=== PATIENT | female | born 1990 | race Caucasian/White ===

== ENCOUNTER 2020-05-02 16:39 | Emergency (ER) | payer OTHER ==
[~2020-05-02] VITALS: Ht 147.3 cm; Wt 77.1 kg
[~2020-05-02 16:39] MED LIST: ACET325 PO; AMOCLA875 PO; AMOX500 PO; CLIN300 PO; CRUTCH4 XX; CYCL10 PO; FLUC200 PO; HYDACE5 PO; IBUP400; IBUP600 PO; MELA3; METR500 PO; Mirena1 EACH; NAPR220 PO; NAPR375 PO; NAPR500 PO; ONDA4 PO; ONDA8 PO; PENVK500 PO; PRED10 PO; RXHYDACE PO; SERT25; SERT25 PO; SILSUL1TC TOP; TRAM50 PO; Zofran Odt4 MG SL
[2020-05-02 17:39] LABS: BASOPHILS ABSOLUTE AUTO 0.04 K/mm3 (0.00-0.23); BASOPHILS PERCENT AUTO 1 % (0-2); EOSINOPHILS ABSOLUTE AUTO 0.15 K/mm3 (0.00-0.68); EOSINOPHILS PERCENT AUTO 2 % (0-6); Hematocrit 42.9 % (33.0-51.0); Hemoglobin 13.6 g/dL (11.5-16.0); IMMATURE GRAN ABSOLUTE AUTO 0.16 K/mm3 (0.00-0.10); IMMATURE GRAN PERCENT AUTO 2 % (0-1); LYMPHOCYTES ABSOLUTE AUTO 2.47 K/mm3 (0.84-5.20); LYMPHOCYTES PERCENT AUTO 29 % (21-46); MONOCYTES ABSOLUTE AUTO 0.79 K/mm3 (0.16-1.47); MONOCYTES PERCENT AUTO 9 % (4-13); Mean Corpuscular HGB 26.5 pg (26.0-34.0); Mean Corpuscular HGB Conc 31.7 g/dL (31.5-36.5); Mean Corpuscular Volume 84 fL (80-100); NEUTROPHILS ABSOLUTE AUTO 5.07 K/mm3 (1.96-9.15); NEUTROPHILS PERCENT AUTO 58 % (41-73); Platelet Count 239 K/mm3 (150-400); RDW Coefficient Variation 14.4 % (11.7-14.2); RDW Standard Deviation 44.1 fL (35.1-46.3); Red Blood Cell Count 5.14 M/mm3 (3.80-5.20); White Blood Cell Count 8.68 K/mm3 (4.00-11.30)
[2020-05-02 17:59] LABS: Alanine Aminotransfer (ALT/SGP 28 U/L (12-78); Alk Phos 91 U/L (50-136); Anion Gap 5 mmol/L (6-16); Aspartate Aminotrans (AST/SGOT 14 U/L (12-37); Bilirubin, Total 0.3 mg/dL (0.1-1.0); Blood Urea Nitrogen 13 mg/dL (8-24); Bun/Creatinine Ratio 16.9 (12.0-20.0); CO2, Blood 29 mmol/L (21-32); Calcium, Blood 9.4 mg/dL (8.5-10.1); Chloride, Blood 111 mmol/L (98-108); Creatinine, Blood 0.77 mg/dL (0.40-1.00); Glomerular Filtration Rate >60 (60-); Glucose, Blood 103 mg/dL (70-99); Potassium, Blood 3.9 mmol/L (3.5-5.5); Sodium, Blood 145 mmol/L (136-145)
[2020-05-02 18:12] LABS: Source, Urine Clean Catch
[2020-05-02 18:15] LABS: Appearance, Urine Clear (Clear); Bilirubin, Urine Neg (Neg); Blood, Urine 3+ (Neg); Color, Urine Yellow (P-Yellow); Glucose Qualitative, Urine Neg (Neg); Ketones, Urine Neg (Neg); Leukocyte Esterase, Urine Neg (Neg); Nitrite, Urine Pos (Neg); Protein, Urine Neg (Neg); Specific Gravity, Urine 1.025 (1.003-1.022); Urobilinogen, Urine NORM (Normal)
[2020-05-02 18:35] LABS: Bacteria Mod /hpf; Mucus Light (0-Heavy); Squamous Epithelial Cells Few /hpf (Few); White Blood Cells, Urine 0-2 /hpf (0-5)
[2020-05-02] MEDS ORDERED: CEPH500 PO (18:49)
[2020-05-02] MEDS ORDERED: Pyridium100 MG PO (18:49)
== END 2020-05-02 19:16 | disposition home or self-care (01) ==
LOC: ER 16:39
PROVIDERS: Physician Assistant
DX: N39.0 Urinary tract infection, site not specified (principal); Z87.891 Personal history of nicotine dependence
CPT/HCPCS: 36415; 76770; 80053; 81001; 81025; 83690; 85025; 87077; 87086; 87186; 99284-25; A9270-GY

== ENCOUNTER 2020-05-18 06:15 | Emergency (ER) | payer OTHER ==
[~2020-05-18] VITALS: Ht 147.3 cm; Wt 77.1 kg
[~2020-05-18 06:15] MED LIST changes: +CEPH500 PO; +Pyridium100 MG PO
[2020-05-18 07:07] LABS: BASOPHILS ABSOLUTE AUTO 0.06 K/mm3 (0.00-0.23); BASOPHILS PERCENT AUTO 1 % (0-2); EOSINOPHILS ABSOLUTE AUTO 0.21 K/mm3 (0.00-0.68); EOSINOPHILS PERCENT AUTO 2 % (0-6); Hematocrit 38.8 % (33.0-51.0); Hemoglobin 12.2 g/dL (11.5-16.0); IMMATURE GRAN ABSOLUTE AUTO 0.11 K/mm3 (0.00-0.10); IMMATURE GRAN PERCENT AUTO 1 % (0-1); LYMPHOCYTES ABSOLUTE AUTO 2.74 K/mm3 (0.84-5.20); LYMPHOCYTES PERCENT AUTO 30 % (21-46); MONOCYTES ABSOLUTE AUTO 0.79 K/mm3 (0.16-1.47); MONOCYTES PERCENT AUTO 9 % (4-13); Mean Corpuscular HGB 26.7 pg (26.0-34.0); Mean Corpuscular HGB Conc 31.4 g/dL (31.5-36.5); Mean Corpuscular Volume 85 fL (80-100); Mean Platelet Volume 9.2 fL (9.1-12.4); NEUTROPHILS ABSOLUTE AUTO 5.19 K/mm3 (1.96-9.15); NEUTROPHILS PERCENT AUTO 57 % (41-73); Platelet Count 242 K/mm3 (150-400); RDW Coefficient Variation 14.8 % (11.7-14.2); RDW Standard Deviation 45.2 fL (35.1-46.3); Red Blood Cell Count 4.57 M/mm3 (3.80-5.20)
[2020-05-18 07:24] LABS: Alanine Aminotransfer (ALT/SGP 22 U/L (12-78); Albumin, Blood 3.7 g/dL (3.4-5.0); Alk Phos 94 U/L (50-136); Anion Gap 5 mmol/L (6-16); Aspartate Aminotrans (AST/SGOT 17 U/L (12-37); Bilirubin, Total 0.4 mg/dL (0.1-1.0); Blood Urea Nitrogen 9 mg/dL (8-24); Bun/Creatinine Ratio 14.5 (12.0-20.0); CO2, Blood 27 mmol/L (21-32); Chloride, Blood 109 mmol/L (98-108); Creatinine, Blood 0.62 mg/dL (0.40-1.00); Globulin, Blood 3.7 g/dL (2.2-4.0); Glomerular Filtration Rate >60 (60-); Glucose, Blood 108 mg/dL (70-99); Sodium, Blood 141 mmol/L (136-145); Total Protein, Blood 7.4 g/dL (6.4-8.2)
[2020-05-18 07:25] LABS: Source, Urine Clean Catch
[2020-05-18 07:28] LABS: Blood, Urine 5+ (Neg); Glucose Qualitative, Urine Neg (Neg); Ketones, Urine Neg (Neg); Leukocyte Esterase, Urine Neg (Neg); Nitrite, Urine Pos (Neg); Protein, Urine 3+ (Neg); Urobilinogen, Urine 2+ (Normal)
[2020-05-18 07:35] LABS: Bilirubin, Urine 3+ (Neg); Color, Urine Red (P-Yellow)
[2020-05-18 07:37] LABS: Bacteria Mod /hpf; Red Blood Cells, Urine TNTC /hpf (0-2); Squamous Epithelial Cells Few /hpf (Few)
[2020-05-18 07:38] LABS: Amorphous Mod (0-Heavy); Appearance, Urine Cloudy (Clear)
[2020-05-18] MEDS ORDERED: CIPR500 PO (08:25)
== END 2020-05-18 08:42 | disposition home or self-care (01) ==
LOC: ER 06:15
PROVIDERS: Emergency Medicine
DX: N10 Acute pyelonephritis (principal); S01.81XA Laceration without foreign body of other part of head, initial encounter; Z87.891 Personal history of nicotine dependence; X58.XXXA Exposure to other specified factors, initial encounter
CPT/HCPCS: 80053; 81001; 81025; 85025; 87086; 96365; 99284-25; J0696

== ENCOUNTER 2021-12-04 17:29 | Emergency (ER) | payer OTHER ==
[~2021-12-04] VITALS: Ht 165.1 cm; Wt 70.3 kg
[~2021-12-04 17:29] MED LIST changes: +CIPR500 PO
== END 2021-12-04 20:57 | disposition home or self-care (01) ==
LOC: ER 17:29
DX: O26.892 Other specified pregnancy related conditions, second trimester (principal); R10.2 Pelvic and perineal pain; O46.8X2 Other antepartum hemorrhage, second trimester; O34.219 Maternal care for unspecified type scar from previous cesarean delivery; Z3A.16 16 weeks gestation of pregnancy; Z87.891 Personal history of nicotine dependence
CPT/HCPCS: 76815; 76817; 81000

== ENCOUNTER 2023-01-21 09:55 | Emergency (ER) | payer OTHER ==
[~2023-01-21] VITALS: Ht 147.3 cm; Wt 79.8 kg
[2023-01-21] MEDS ORDERED: PRENATAL TABLE1 EAC2 PO (10:47)
[2023-01-21 10:53] LABS: BASOPHILS ABSOLUTE AUTO 0.02 K/mm3 (0.00-0.23); BASOPHILS PERCENT AUTO 0 % (0-2); EOSINOPHILS ABSOLUTE AUTO 0.13 K/mm3 (0.00-0.68); EOSINOPHILS PERCENT AUTO 1 % (0-6); Hematocrit 37.8 % (33.0-51.0); Hemoglobin 12.3 g/dL (11.5-16.0); IMMATURE GRAN ABSOLUTE AUTO 0.13 K/mm3 (0.00-0.10); IMMATURE GRAN PERCENT AUTO 1 % (0-1); LYMPHOCYTES ABSOLUTE AUTO 1.75 K/mm3 (0.84-5.20); LYMPHOCYTES PERCENT AUTO 19 % (21-46); MONOCYTES PERCENT AUTO 8 % (4-13); Mean Corpuscular HGB 26.2 pg (26.0-34.0); Mean Corpuscular HGB Conc 32.5 g/dL (31.5-36.5); Mean Corpuscular Volume 81 fL (80-100); Mean Platelet Volume 9.2 fL (9.1-12.4); NEUTROPHILS ABSOLUTE AUTO 6.64 K/mm3 (1.96-9.15); NEUTROPHILS PERCENT AUTO 71 % (41-73); Platelet Count 211 K/mm3 (150-400); RDW Coefficient Variation 16.2 % (11.7-14.2); RDW Standard Deviation 47.4 fL (35.1-46.3); Red Blood Cell Count 4.69 M/mm3 (3.80-5.20); White Blood Cell Count 9.37 K/mm3 (4.00-11.30)
[2023-01-21 11:27] LABS: Bun/Creatinine Ratio 12.5 (12.0-20.0); Calcium, Blood 8.7 mg/dL (8.5-10.1); Creatinine, Blood 0.48 mg/dL (0.40-1.00); Potassium, Blood 3.6 mmol/L (3.5-5.5)
[2023-01-21 11:57] LABS: Source, Urine Clean Catch
[2023-01-21 12:18] LABS: Appearance, Urine Hazy (Clear); Bilirubin, Urine Neg (Neg); Blood, Urine 5+ (Neg); Color, Urine Red (P-Yellow); Glucose Qualitative, Urine Neg (Neg); Ketones, Urine 1+ (Neg); Leukocyte Esterase, Urine 1+ (Neg); Nitrite, Urine Neg (Neg); Protein, Urine 3+ (Neg); Urobilinogen, Urine NORM (Normal)
[2023-01-21 12:38] LABS: Bacteria Mod /hpf; Mucus Mod (0-Heavy); Red Blood Cells, Urine 50-100 /hpf (0-2); Squamous Epithelial Cells Few /hpf (Few)
[2023-01-21 13:27] VITALS: BP 107/64
== END 2023-01-21 13:29 | disposition home or self-care (01) ==
LOC: ER 09:55
PROVIDERS: Physician Assistant
DX: O20.8 Other hemorrhage in early pregnancy (principal); Z87.891 Personal history of nicotine dependence; Z3A.09 9 weeks gestation of pregnancy
CPT/HCPCS: 76801; 76817; 80048; 81001; 84702; 85025; 86900; 86901; 87086; 96360; 99284-25; J7030

== ENCOUNTER 2023-03-12 09:50 | Emergency (ER) | payer OTHER ==
[~2023-03-12] VITALS: Ht 147.3 cm; Wt 77.1 kg
[~2023-03-12 09:50] MED LIST changes: +PRENATAL TABLE1 EAC2 PO
[2023-03-12 10:48] LABS: Source, Urine Clean Catch
[2023-03-12 11:00] VITALS: BP 133/69
[2023-03-12 11:06] LABS: Appearance, Urine Clear (Clear); Bilirubin, Urine Neg (Neg); Blood, Urine 4+ (Neg); Color, Urine Yellow (P-Yellow); Glucose Qualitative, Urine Neg (Neg); Ketones, Urine Neg (Neg); Leukocyte Esterase, Urine Neg (Neg); Nitrite, Urine Neg (Neg); Protein, Urine Neg (Neg); Specific Gravity, Urine 1.025 (1.003-1.022); Urobilinogen, Urine NORM (Normal)
[2023-03-12 11:29] LABS: Mucus Mod (0-Heavy); Squamous Epithelial Cells Few /hpf (Few); Transitional Epithelial Cells Few /hpf (0-Rare)
[2023-03-12 11:30] LABS: Amorphous Light (0-Heavy); Bacteria Few /hpf; White Blood Cells, Urine 0-2 /hpf (0-5)
== END 2023-03-12 12:00 | disposition home or self-care (01) ==
LOC: ER 09:50
PROVIDERS: Physician Assistant
DX: O99.891 Other specified diseases and conditions complicating pregnancy (principal); R10.31 Right lower quadrant pain; Z3A.17 17 weeks gestation of pregnancy; Z87.891 Personal history of nicotine dependence; Z79.899 Other long term (current) drug therapy
CPT/HCPCS: 81001; 99284-25

== ENCOUNTER 2023-04-10 14:46 | Inpatient (IN) | payer OTHER ==
[~2023-04-10] VITALS: Ht 147.3 cm; Wt 83.6 kg
[2023-04-10 15:04] VITALS: BP 113/53
[2023-04-10 15:30] LABS: Source, Urine Voided
[2023-04-10 15:48] LABS: Appearance, Urine Clear (Clear); Bilirubin, Urine Neg (Neg); Blood, Urine 1+ (Neg); Color, Urine Yellow (P-Yellow); Glucose Qualitative, Urine 3+ (Neg); Ketones, Urine Neg (Neg); Leukocyte Esterase, Urine 2+ (Neg); Nitrite, Urine Neg (Neg); Protein, Urine 1+ (Neg); Specific Gravity, Urine 1.025 (1.003-1.022); Urobilinogen, Urine NORM (Normal)
[2023-04-10 16:10] LABS: Bacteria Many /hpf; Hyaline Casts 0-2 /lpf (0-2); White Blood Cells, Urine 25-50 /hpf (0-5)
[2023-04-10 16:11] LABS: Squamous Epithelial Cells Mod /hpf (Few); Transitional Epithelial Cells Rare /hpf (0-Rare)
[2023-04-10 20:35] LABS: BASOPHILS ABSOLUTE AUTO 0.08 K/mm3 (0.00-0.23); BASOPHILS PERCENT AUTO 1 % (0-2); EOSINOPHILS ABSOLUTE AUTO 0.13 K/mm3 (0.00-0.68); EOSINOPHILS PERCENT AUTO 1 % (0-6); Hemoglobin 11.1 g/dL (11.5-16.0); IMMATURE GRAN ABSOLUTE AUTO 0.64 K/mm3 (0.00-0.10); IMMATURE GRAN PERCENT AUTO 4 % (0-1); LYMPHOCYTES ABSOLUTE AUTO 1.93 K/mm3 (0.84-5.20); LYMPHOCYTES PERCENT AUTO 13 % (21-46); MONOCYTES ABSOLUTE AUTO 1.17 K/mm3 (0.16-1.47); MONOCYTES PERCENT AUTO 8 % (4-13); Mean Corpuscular HGB 27.2 pg (26.0-34.0); Mean Corpuscular HGB Conc 32.6 g/dL (31.5-36.5); Mean Corpuscular Volume 83 fL (80-100); NEUTROPHILS ABSOLUTE AUTO 10.72 K/mm3 (1.96-9.15); NEUTROPHILS PERCENT AUTO 73 % (41-73); Platelet Count 193 K/mm3 (150-400); RDW Coefficient Variation 16.3 % (11.7-14.2); RDW Standard Deviation 48.9 fL (35.1-46.3); Red Blood Cell Count 4.08 M/mm3 (3.80-5.20); White Blood Cell Count 14.67 K/mm3 (4.00-11.30)
[2023-04-10 21:15] LABS: Albumin/Globulin Ratio 0.8 (0.8-1.8); Bilirubin, Total 0.3 mg/dL (0.1-1.0); Bun/Creatinine Ratio 14.1 (12.0-20.0); Calcium, Blood 8.9 mg/dL (8.5-10.1); Creatinine, Blood 0.5 mg/dL (0.40-1.00); Potassium, Blood 3.7 mmol/L (3.5-5.5)
[2023-04-11] VITALS (8 sets, daily range): BP systolic 108–126; BP diastolic 55–62
--- NOTE | 2023-04-11 08:01 | NUR ---
FHT 140-150s FEELS BABY MOVING
--- NOTE | 2023-04-11 10:33 | NUR ---
PATIENT CONTINUES TO HAVE CRAMPING, STATES NOT ANY WORSE AT THIS TIME STARTED AT 0815 THIS MORNING
--- NOTE | 2023-04-11 10:58 | NUR ---
still cramping, heating pad offered
--- NOTE | 2023-04-11 17:56 | NUR ---
DENIES LOSING FLUID BUT INCREASE IN DISCHARGE, STATES SHARP SHOOTING PAIN IN VAGINA BUT DENIED CRAMPING AT THIS TIME
--- NOTE | 2023-04-11 19:53 | NUR ---
1940- FHR 150S ON HANDHELD DOPPLER.
[2023-04-12] VITALS (9 sets, daily range): BP systolic 94–135; BP diastolic 50–62
--- NOTE | 2023-04-12 03:25 | NUR ---
0150- FHR 150S WITH HANDHELD DOPPLER.
--- NOTE | 2023-04-12 08:04 | NUR ---
STATES MORE CRAMPING INCREASE PRESSURE, INCREASE DISCHARGE, FHT WITH DOPPLER 120s
--- NOTE | 2023-04-12 10:43 | NUR ---
patient took quick nap states warm temp 98.7, states has headache, wants tylenol
--- NOTE | 2023-04-12 11:10 | NUR ---
PATIENTSTATES SHE FEELS LIKE SHE IS GETTING SICK CHEEKS ARE FLUSH UP TO SHOWER LINEN CHANGED VITALS WNL
[2023-04-12 12:27] LABS: Hematocrit 31.4 % (33.0-51.0); Hemoglobin 10.1 g/dL (11.5-16.0); Mean Corpuscular HGB 27.4 pg (26.0-34.0); Mean Corpuscular HGB Conc 32.2 g/dL (31.5-36.5); Mean Corpuscular Volume 85 fL (80-100); Mean Platelet Volume 9.2 fL (9.1-12.4); Platelet Count 201 K/mm3 (150-400); RDW Coefficient Variation 16.8 % (11.7-14.2); RDW Standard Deviation 51.2 fL (35.1-46.3); Red Blood Cell Count 3.68 M/mm3 (3.80-5.20); White Blood Cell Count 20.35 K/mm3 (4.00-11.30)
[2023-04-12 12:53] LABS: BAND PERCENT MAN 2 % (0-8); BASOPHILS PERCENT MAN 0 % (0-2); EOSINOPHILS PERCENT MAN 0 % (0-6); LYMPHOCYTES ABSOLUTE MAN 1.42 K/mm3 (0.84-5.20); LYMPHOCYTES PERCENT MAN 7 % (21-46); METAMYELOCYTE PERCENT MAN 2 % (0-0); MONOCYTES PERCENT MAN 2 % (4-13); NEUTROPHILS ABSOLUTE MAN 18.11 K/mm3 (1.96-9.15); SEG NEUTROPHILS PERCENT MAN 87 % (41-73); TOTAL CELLS COUNTED 100
--- NOTE | 2023-04-12 13:30 | NUR ---
PATIENT STATES STILL CRAMPING WBC INCREASE IN LAB WORK FHT AT 140, WILL UPDATE DR NEWMAN
--- NOTE | 2023-04-12 13:40 | NUR ---
DR NEWMAN UPDATED SHE IS CONTACTING THE ETHICS COMMITEE TO START INDUCTION BECAUSE WBC ARE INCREASING AND PATIENT FEELS SHE IS GETTING SICKER, PATIET IS AWARE THAT IF THE BABY IS BORN ALIVE THAT NO HEROIC MEASURES WILL BE PERFORMED AND THE BABY WILL NOT MAKE IT, PATIENT HAS COME TO TERMS WITH THAT AND WANTS TO PROCEED AT THIS TIME,
--- NOTE | 2023-04-12 14:36 | NUR ---
CALL OUT TO DR NEWMAN TO CONFIRM STARTING PITOCIN, SHE IS IN CONTACT WITH ETHICS COMMITEE, SPOUSE IS AT BEDSIDE BOTH HAVE CONFIRMED AND APPROVED OF PLAN TO DELIVERY BABY, BOTH ARE AWARE BABY WILL BE PLACED ON HER CHEST AFTER AND NO COMFORT CARE ONLY WILL BE GIVEN IF BABY IS BORN ALIVE
--- NOTE | 2023-04-12 14:59 | NUR ---
Ethics consultation requested. Provider reports that the birthing patient is displaying clinical signs of infection and efforts to stave off the onset of chorioamnionitis are unfortunately proving non-efficacious. Proceeding with indunction measures in this situation would be ethically and morally appropriate. Our clinicians are supported to pursue operations, treatments, and medications within the standard of care that have as their direct purpose the cure of a proportionately serious pathological condition, even if this indirectly results in the termination of the . Tragically, the child has not reached the age of viability, so upon delivery; in accordance with the wishes expressed by the parents, resuscitative efforts will be withheld. Praying for healing, strength and courage for the medical team, and the family in their time of pain, grief and loss. Thank you for this consult. Red Dorantes, PhD, ARIANA
--- NOTE | 2023-04-12 15:10 | NUR ---
SPOKE WITH [facility] [employer] COMMITTEE HE CONFIRMED WE ARE CAN START INDUCTION PROCESS, FAMILY IS STILL CONFIRMING THEY WANT TO PROCEED
--- NOTE | 2023-04-12 16:04 | NUR ---
Spiritual care visit conducted. Patient with SO Freddy present talk with me about their history, their spiritual beliefs and guilt they are working through. I listen empathically and hear of the loss and emotional pain of their past. I provide theological and medical insights that appear to lift the weight they are feeling. I maintain a calming presence and highlight their courage. Both patient and Freddy showed signs of greater peace. Their county commissioner arrives and takes over the conversation and I allow them to talk.
--- NOTE | 2023-04-12 16:29 | NUR ---
patient was with spiritual care and not ready for induction yet, patient is now ready to start pitocin
--- NOTE | 2023-04-12 17:22 | NUR ---
baby to go to [facility] home after discharge
[2023-04-13] VITALS (12 sets, daily range): BP systolic 99–137; BP diastolic 51–74
[2023-04-13 06:42] LABS: Hematocrit 28.6 % (33.0-51.0); Hemoglobin 9.2 g/dL (11.5-16.0); Mean Corpuscular HGB 27.5 pg (26.0-34.0); Mean Corpuscular HGB Conc 32.2 g/dL (31.5-36.5); Mean Corpuscular Volume 85 fL (80-100); Mean Platelet Volume 9.5 fL (9.1-12.4); NRBC ABSOLUTE 0.03 K/mm3 (0.00-0.02); NRBC Auto 0.2 /100 WBC (0.0-0.2); Platelet Count 192 K/mm3 (150-400); RDW Coefficient Variation 16.9 % (11.7-14.2); RDW Standard Deviation 51.9 fL (35.1-46.3); Red Blood Cell Count 3.35 M/mm3 (3.80-5.20); White Blood Cell Count 19.76 K/mm3 (4.00-11.30)
[2023-04-13 07:02] LABS: BAND PERCENT MAN 3 % (0-8); BASOPHILS PERCENT MAN 0 % (0-2); EOSINOPHILS PERCENT MAN 0 % (0-6); LYMPHOCYTES ABSOLUTE MAN 1.18 K/mm3 (0.84-5.20); LYMPHOCYTES PERCENT MAN 6 % (21-46); METAMYELOCYTE ABSOLUTE MAN 0.79 K/mm3 (0.00-0.00); METAMYELOCYTE PERCENT MAN 4 % (0-0); MONOCYTES ABSOLUTE MAN 0.59 K/mm3 (0.16-1.47); MONOCYTES PERCENT MAN 3 % (4-13); NEUTROPHILS ABSOLUTE MAN 17.19 K/mm3 (1.96-9.15); SEG NEUTROPHILS PERCENT MAN 84 % (41-73); TOTAL CELLS COUNTED 100
--- NOTE | 2023-04-13 09:03 | NUR ---
THIS RN CONTACTED DR NEWMAN REGARDING PT LABS. LABS REVIEWED. PT STILL OK TO DISCHARGE AFTER 6 HOURS OF DELIVERY.
== END 2023-04-13 11:40 | disposition home or self-care (01) | DRG 805 ==
LOC: OBS 14:46 → BC 14:46 → OBS 18:55 → BC 18:56
PROVIDERS: ADMIT Obstetrics & Gynecology
PROC: 10E0XZZ Delivery of Products of Conception, External Approach (ICD-10-PCS; principal; 2023-04-13)
DX: O42.912 Preterm premature rupture of membranes, unspecified as to length of time between rupture and onset of labor, second trimester (principal); O41.1220 Chorioamnionitis, second trimester, not applicable or unspecified; Z37.1 Single stillbirth; O42.012 Preterm premature rupture of membranes, onset of labor within 24 hours of rupture, second trimester; O32.1XX0 Maternal care for breech presentation, not applicable or unspecified; O69.2XX0 Labor and delivery complicated by other cord entanglement, with compression, not applicable or unspecified; Z3A.21 21 weeks gestation of pregnancy; Z87.891 Personal history of nicotine dependence; O34.219 Maternal care for unspecified type scar from previous cesarean delivery
CPT/HCPCS: 36415; 76815; 80053; 81001; 81003; 85025; 86850; 86900; 86901; 86923; 87086; 87210; 96372; 99213; A9270; J0295; J0702; J1885; J2590; J3010; J7120

== ENCOUNTER → 2024-11-06 | Outpatient (CLI) | payer OTHER ==
[2024-11-09 02:18] LABS: APTIMA MEDIA TYPE Urine; C. TRACHOMATIS BY TMA Negative (Negative); N. GONORRHOEAE BY TMA Negative (Negative); SPECIMEN SOURCE Urine
== END | disposition home or self-care (01) ==
LOC: LAB 18:25 → LAB SHORT 18:25
PROVIDERS: Obstetrics & Gynecology
DX: Z34.81 Encounter for supervision of other normal pregnancy, first trimester (principal)
CPT/HCPCS: 87491; 87591

== ENCOUNTER 2025-06-14 05:30 | Inpatient (IN) | payer OTHER ==
[2025-06-14] VITALS (18 sets, daily range): BP systolic 110–131; BP diastolic 56–78
[~2025-06-14] VITALS: Ht 147.3 cm; Wt 89.5 kg
[2025-06-14] MEDS ORDERED: Oxytocin 10 Unit / ML Vial IM PRN (07:55)
[2025-06-14] MEDS ORDERED: Methylergonovine Maleate 0.2MG / ML 1ML Amp IM PRN (07:55)
[2025-06-14] MEDS ORDERED: CeFAZolin Sodium 2,000 MG in NS 100 ML IV SCH (07:55)
[2025-06-14] MEDS ORDERED: Ondansetron HCl 2 MG / ML 2ML Vial IV PRN ×4 (07:55→11:00)
[2025-06-14] MEDS ORDERED: Tranexamic Acid 100 ML IV SCH (07:55)
[2025-06-14] MEDS ORDERED: Carboprost Tromethamine 250 MCG/ML 1ML Amp IM PRN (07:55)
[2025-06-14] MEDS ORDERED: OXYTOCIN/RINGER'S LACTATE 500 ML IV PRN (07:55)
[2025-06-14 08:03] LABS: BASOPHILS ABSOLUTE AUTO 0.08 K/mm3 (0.00-0.23); BASOPHILS PERCENT AUTO 1 % (0-2); EOSINOPHILS ABSOLUTE AUTO 0.10 K/mm3 (0.00-0.68); EOSINOPHILS PERCENT AUTO 1 % (0-6); Hematocrit 33.5 % (33.0-51.0); Hemoglobin 10.4 g/dL (11.5-16.0); IMMATURE GRAN ABSOLUTE AUTO 0.46 K/mm3 (0.00-0.10); IMMATURE GRAN PERCENT AUTO 4 % (0-1); LYMPHOCYTES ABSOLUTE AUTO 2.10 K/mm3 (0.84-5.20); LYMPHOCYTES PERCENT AUTO 17 % (21-46); MONOCYTES ABSOLUTE AUTO 0.97 K/mm3 (0.16-1.47); MONOCYTES PERCENT AUTO 8 % (4-13); Mean Corpuscular HGB Conc 31.0 g/dL (31.5-36.5); Mean Corpuscular Volume 80 fL (80-100); NEUTROPHILS ABSOLUTE AUTO 8.45 K/mm3 (1.96-9.15); NEUTROPHILS PERCENT AUTO 69 % (41-73); NRBC ABSOLUTE 0.00 K/mm3 (0.00-0.02); NRBC Auto 0.0 /100 WBC (0.0-0.2); Platelet Count 184 K/mm3 (150-400); RDW Coefficient Variation 17.2 % (11.7-14.2); RDW Standard Deviation 49.6 fL (35.1-46.3)
[2025-06-14] MEDS ORDERED: FentaNYL Citrate 50 MCG/ML 2 ML Injection IV PRN (08:05)
[2025-06-14] MEDS ORDERED: Albuterol 2.5 MG/3 ML VIAL INH PRN (08:05)
[2025-06-14] MEDS ORDERED: Oxytocin 10 Unit / ML Vial ONE (08:09)
[2025-06-14] MEDS ORDERED: FentaNYL Citrate 50 MCG/ML 2 ML Injection ONE (08:09)
[2025-06-14] MEDS ORDERED: Metoclopramide HCl 5MG / ML 2ML Vial IV ONE (08:10)
[2025-06-14] MEDS ORDERED: Citric Acid/Sodium Citrate 30 ML BTL PO ONE (08:10)
--- NOTE | 2025-06-14 10:27 | NUR ---
06/14/25 1027 Elayne Guerra DOPPLERED FHT WITH CATHETER PLACEMENT AT 146. ANTIBOTICS ANCEF 2G AND ZITHROMAX [address] ORDAZ. VIABLE FEMALE BORN AT 1019. APGARS 9. CORD GASES ON ICE AND GIVEN TO RT GIBSON AND CORD BLOOD GIVEN TO WILMA ARZATE.
[2025-06-14 10:30] LABS: PCO2 Cord - Arterial 68.2 mmHg (40-50); PO2 Cord - Arterial < 12.0 mmHg (16-20); pH Cord - Arterial 7.21 (7.28-7.35)
[2025-06-14 10:32] LABS: PCO2 Cord - Venous 47.6 mmHg (40-50); PO2 Cord - Venous 25.1 mmHg (28-32); pH Umbilical Cord - Venous 7.34 (7.26-7.35)
[2025-06-14] MEDS ORDERED: Morphine Sulfate 4 MG/1 ML Injection IV PRN (11:00)
[2025-06-14] MEDS ORDERED: OXYTOCIN/RINGER'S LACTATE 500 ML IV SCH (11:05)
[2025-06-14] MEDS ORDERED: OxyCODONE 5 mg/Acetamin 325 mg TABLET PO PRN (11:05)
[2025-06-14] MEDS ORDERED: Magnesium Hydroxide Conc 10 ML UDC PO PRN (11:05)
[2025-06-14] MEDS ORDERED: Ketorolac Tromethamine 30mg Vial IV SCH (12:00)
[2025-06-15 05:25] VITALS: BP 130/63
[2025-06-15 06:12] LABS: BASOPHILS ABSOLUTE AUTO 0.03 K/mm3 (0.00-0.23); BASOPHILS PERCENT AUTO 0 % (0-2); EOSINOPHILS ABSOLUTE AUTO 0.18 K/mm3 (0.00-0.68); EOSINOPHILS PERCENT AUTO 2 % (0-6); Hematocrit 29.1 % (33.0-51.0); Hemoglobin 9.0 g/dL (11.5-16.0); IMMATURE GRAN ABSOLUTE AUTO 0.27 K/mm3 (0.00-0.10); IMMATURE GRAN PERCENT AUTO 2 % (0-1); LYMPHOCYTES ABSOLUTE AUTO 1.41 K/mm3 (0.84-5.20); LYMPHOCYTES PERCENT AUTO 12 % (21-46); MONOCYTES ABSOLUTE AUTO 1.09 K/mm3 (0.16-1.47); MONOCYTES PERCENT AUTO 9 % (4-13); Mean Corpuscular HGB Conc 30.9 g/dL (31.5-36.5); Mean Corpuscular Volume 80 fL (80-100); NEUTROPHILS ABSOLUTE AUTO 8.71 K/mm3 (1.96-9.15); NEUTROPHILS PERCENT AUTO 75 % (41-73); NRBC ABSOLUTE 0.02 K/mm3 (0.00-0.02); NRBC Auto 0.2 /100 WBC (0.0-0.2); Platelet Count 154 K/mm3 (150-400); RDW Coefficient Variation 17.2 % (11.7-14.2); RDW Standard Deviation 49.7 fL (35.1-46.3)
[2025-06-15 07:43] VITALS: BP 118/71
[2025-06-15] MEDS ORDERED: Prenatal Vit/FE Fumarate/FA 1 Tab PO SCH (09:00)
[2025-06-15 11:34] VITALS: BP 114/59
[2025-06-15 15:23] VITALS: BP 108/56
[2025-06-18 11:03] LABS: HCV QNT BY NAAT (IU/ML) Not Detected; HCV QNT BY NAAT (LOG IU/ML) Not Detected; HCV QNT BY NAAT INTERP Not Detected (Not Detected)
== END 2025-06-15 15:45 | disposition home or self-care (01) | DRG 788 ==
LOC: BC 05:30
PROVIDERS: ADMIT Obstetrics & Gynecology
PROC: 10D00Z1 Extraction of Products of Conception, Low, Open Approach (ICD-10-PCS; principal; 2025-06-14 08:00)
DX: O34.211 Maternal care for low transverse scar from previous cesarean delivery (principal); O24.429 Gestational diabetes mellitus in childbirth, unspecified control; Z3A.38 38 weeks gestation of pregnancy; Z37.0 Single live birth
CPT/HCPCS: 36415; 36416; 82803; 82947; 85025; 86850; 86900; 86901; 86923; 87522; A9270; J1885; J2405; J2590; J2765; J3010; J7120

== ENCOUNTER 2025-06-16 20:12 | Emergency (ER) | payer OTHER ==
[~2025-06-16] VITALS: Ht 147.3 cm; Wt 89.4 kg
[2025-06-16] MEDS ORDERED: FentaNYL Citrate 50 MCG/ML 2 ML Injection IV ONE (20:30)
[2025-06-16 20:55] LABS: BASOPHILS ABSOLUTE AUTO 0.04 K/mm3 (0.00-0.23); BASOPHILS PERCENT AUTO 0 % (0-2); EOSINOPHILS ABSOLUTE AUTO 0.19 K/mm3 (0.00-0.68); EOSINOPHILS PERCENT AUTO 2 % (0-6); Hematocrit 29.1 % (33.0-51.0); Hemoglobin 8.9 g/dL (11.5-16.0); IMMATURE GRAN ABSOLUTE AUTO 0.40 K/mm3 (0.00-0.10); IMMATURE GRAN PERCENT AUTO 4 % (0-1); LYMPHOCYTES ABSOLUTE AUTO 1.26 K/mm3 (0.84-5.20); LYMPHOCYTES PERCENT AUTO 12 % (21-46); MONOCYTES ABSOLUTE AUTO 0.79 K/mm3 (0.16-1.47); MONOCYTES PERCENT AUTO 7 % (4-13); Mean Corpuscular HGB Conc 30.6 g/dL (31.5-36.5); Mean Corpuscular Volume 80 fL (80-100); NEUTROPHILS ABSOLUTE AUTO 8.26 K/mm3 (1.96-9.15); NEUTROPHILS PERCENT AUTO 76 % (41-73); NRBC ABSOLUTE 0.00 K/mm3 (0.00-0.02); NRBC Auto 0.0 /100 WBC (0.0-0.2); Platelet Count 192 K/mm3 (150-400); RDW Coefficient Variation 17.3 % (11.7-14.2); RDW Standard Deviation 50.3 fL (35.1-46.3)
[2025-06-16 21:08] LABS: Prothrombin Time Results 10.3 Sec (9.7-11.5)
[2025-06-16 21:18] LABS: Source, Urine Straight Cath
[2025-06-16 21:21] LABS: Alanine Aminotransfer (ALT/SGP 14.0 U/L (12-78); Albumin, Blood 2.5 g/dL (3.4-5.0); Albumin/Globulin Ratio 0.7 (0.8-1.8); Anion Gap 10.0 mmol/L (3-11); Aspartate Aminotrans (AST/SGOT 15.0 U/L (12-37); Bilirubin, Total 0.3 mg/dL (0.1-1.0); Blood Urea Nitrogen 8.0 mg/dL (8-24); CO2, Blood 24.0 mmol/L (21-32); Calcium, Blood 9.0 mg/dL (8.5-10.1); Chloride, Blood 106.0 mmol/L (98-108); Creatinine, Blood 0.74 mg/dL (0.40-1.00); Globulin, Blood 3.7 g/dL (2.2-4.0); Glucose, Blood 101.0 mg/dL (70-99); Potassium, Blood 3.9 mmol/L (3.5-5.5); Sodium, Blood 136.0 mmol/L (136-145); Total Protein, Blood 6.2 g/dL (6.4-8.2)
[2025-06-16 21:28] LABS: Bilirubin, Urine Neg (Neg); Color, Urine Yellow (P-Yellow); Glucose Qualitative, Urine Neg (Neg); Ketones, Urine Neg (Neg); Leukocyte Esterase, Urine 2+ (Neg); Protein, Urine 2+ (Neg); Specific Gravity, Urine 1.015 (1.003-1.022); Urobilinogen, Urine NORM (Normal)
[2025-06-16 21:52] LABS: Red Blood Cells, Urine 50-100 /hpf (0-2)
[2025-06-16] MEDS ORDERED: NS 1,000 ML IV SCH (23:15)
[2025-06-17 00:31] VITALS: BP 107/55
== END 2025-06-17 00:31 | disposition home or self-care (01) ==
LOC: ER 20:12
PROVIDERS: Emergency Medicine
DX: O90.89 Other complications of the puerperium, not elsewhere classified (principal); R51.9 Headache, unspecified; O10.93 Unspecified pre-existing hypertension complicating the puerperium; O99.03 Anemia complicating the puerperium
CPT/HCPCS: 80053; 81001; 83615; 84484; 85025; 85610; 93005; 93010; 96374; 99284-25; A9270; J3010; J7030